=== PATIENT | male | born 1970 | race Caucasian/White ===

== ENCOUNTER 2016-10-27 16:02 | Emergency (ER) | payer OTHER ==
[2016-10-27 16:12] VITALS: BP 182/71
[2016-10-27 16:31] LABS: Hematocrit 43.6 % (42.0-52.0); Hemoglobin 14.4 gm/dL (13.5-18.0); Mean Corpuscular Hemoglobin 30.1 pg (27-31); Mean Platelet Volume 9.7 fl (6.0-9.5); Neutrophil # 7.8 K/mm3 (1.3-6.0); Neutrophil % 72.2 % (42-75.0); Platelet Count 270 K/mm3 (150-450); Red Blood Count 4.79 M/mm3 (4.7-6.0); Red Cell Distribution Width 12.8 % (11.5-14.0); White Blood Count 10.8 K/mm3 (4.0-10.5)
--- NOTE | 2016-10-27 16:41 | ERNOTE ---
Abdominal HPI - General Chief Complaint: Abdominal Pain Time Seen by Provider: 10/27/16 16:27 Source: patient Exam Limitations: clinical condition - Immun/Allergies/Home Medications Immunizatons: IMMUNIZATION HX Immunizations Up to Date Yes History of Influenza Vaccine Yes Allergies/Adverse Reactions: Allergies bupropion HCl [From Wellbutrin] Allergy (Verified 10/27/16 16:08) increased anger divalproex sodium [From Depakote] Allergy (Verified 10/27/16 16:08) very violent behavior asenapine maleate [From Saphris] Adverse Reaction (Verified 10/27/16 16:08) more aggressive benztropine mesylate [From Cogentin] Adverse Reaction (Verified 10/27/16 16:08) vomiting, dry mouth escitalopram oxalate [From Lexapro] Adverse Reaction (Verified 10/27/16 16:08) insomnia olanzapine [From Zyprexa] Adverse Reaction (Verified 10/27/16 16:08) wt gain with high doses paliperidone [From Invega] Adverse Reaction (Verified 10/27/16 16:08) wt gain risperidone [From Risperdal] Adverse Reaction (Verified 10/27/16 16:08) increased anger, yelling, outbursts thioridazine HCl [From Mellaril] Adverse Reaction (Verified 10/27/16 16:08) increased anger ziprasidone HCl [From Geodon] Adverse Reaction (Verified 10/27/16 16:08) increased anger ziprasidone mesylate [From Geodon] Adverse Reaction (Verified 10/27/16 16:08) increased anger Home Medications: HOME MEDICATIONS Escitalopram Oxalate [Lexapro] 30 mg PO DAILY 10/21/12 [Last Taken 10/21/12 08: 00] Ezetimibe [Zetia] 10 mg PO DAILY 10/21/12 [Last Taken Unknown] Propranolol HCl [Inderal Generic] 10 mg PO DAILY 10/21/12 [Last Taken Unknown] Simvastatin [Zocor] 10 mg PO DAILY 10/21/12 [Last Taken Unknown] Topiramate [Topamax] 50 mg PO DAILY 10/28/12 [Last Taken Unknown] Topiramate [Topamax] 100 mg PO DAILY 10/28/12 [Last Taken Unknown] Topiramate [Topamax] 200 mg PO HS 01/08/13 [Last Taken Unknown] Levothyroxine Sodium [Synthroid] 50 mcg PO DAILY 11/12/13 [Last Taken Unknown] Olanzapine [Zyprexa] 20 mg PO BID 11/12/13 [Last Taken Unknown] Omeprazole [Prilosec] 20 mg PO BID 11/12/13 [Last Taken Unknown] Polyethylene Glycol 3350 [Miralax] 17 gm PO DAILY 11/12/13 [Last Taken Unknown] Propranolol HCl [Inderal] 20 mg PO BID 11/12/13 [Last Taken Unknown] Sucralfate [Carafate] 1 gm PO QID 11/12/13 [Last Taken Unknown] Ondansetron [Zofran Odt] 4 mg PO Q4H PRN #10 tab 10/27/16 [Last Taken Unknown] - History of Present Illness Narrative: Patient states that he started to have abdominal pain, vomiting and diarrhea. The pain is mainly epigastric and upper abdominal, denies any fever, no known exposure Date (Duration): 10/27/16 Time (Timing): 06:00 Timing: constant Quality: moderate Review of Systems - Review of Systems Constitutional: Absent: recent illness, fever ENT: Absent: nose congestion, sore throat Respiratory: Absent: shortness of breath, cough Cardiology: Absent: chest pain Gastrointestinal/Abdominal: Present: See HPI, nausea, vomiting, diarrhea, abdominal pain Musculoskeletal: Absent: muscle pain Neurological: Absent: headache - Patient's Past Medical History Patient History - Medical: Anxiety, Depression Patient History - Cardiac/Respiratory: Hyperlipidemia Patient History - Cancer: No Hx of Cancer Patient History - Surgical Procedures: Appendectomy, Other - Social History Living Situations: alone Smoking Status: Never smoker - Immunizations Immunizations Up to Date: Yes Physical Exam - Physical Exam General Appearance: Present: wd/wn, alert, no apparent distress Eye Exam: Normal inspection: bilateral Ears, Nose, Throat: Present: normal ENT inspection, normal pharynx Respiratory: Present: no respiratory distress, normal breath sounds, no accessory muscle use, lungs clear Cardiovascular/Chest: Present: regular rate, rhythm, no murmur Gastrointestinal/Abdominal: Present: soft, tenderness - epigastric, abnormal bowel sounds - decreased Extremity Exam: Present: no edema Neurological Exam: Present: alert, normal mood/affect Skin Exam: Present: normal color, warm/dry ED Progress - Results and Orders Patient's Lab Results:: I have reviewed the patient's lab results. - Vital Signs Patient's Vital Signs:: I have reviewed the patient's vital signs. Vital Signs: Vital Signs 10/27/16 10/27/16 16:03 16:11 Temperature 36.3 C L Pulse Rate 87 92 Respiratory 16 16 Rate Blood Pressure 170/77 182/71 O2 Sat by Pulse 98 96 Oximetry - X-Ray X-Ray #1 X-Ray: abdomen - non specific bowl gas pattern Interpretation: Interp. by me - Progress/Reassessment Chief Complaint: Abdominal Pain Progress Note-Subjective: 10/27/16 17:43 nausea better, no vomiting, just had large amount of diarrhea in bathroom 10/27/16 18:03 tolerated water, no more vomiting, abdominal pain better since getting the ' stomach pill' (zofran) when talking about his scheduled medications he now states that he was able to keep am and noon medications down and did not start throwing up till the afternoon, would like more medication for the pain 10/27/16 18:28 pain better after GI cocktail, no vomiting, patient is ready to go home Departure - Departure Clinical Impression: Gastroenteritis Disposition: Home self-care Condition: Good Instructions: Viral Gastroenteritis, Adult, [id number] Additional Instructions: call your doctor after the weekend for follow up Referrals: Geena Arzola MD [Primary Care Provider] - Prescriptions: Ondansetron [Zofran Odt] 4 mg PO Q4H PRN #10 tab PRN Reason: Nausea And Vomiting
[2016-10-27 16:44] LABS: Anion Gap 15.4 mmol/L (6.8-13.8); Bilirubin, Total 0.4 mg/dL (0.0-1.1); Calcium * 9.3 mg/dL (7.9-10.9); Carbon Dioxide 24.1 mmol/L (24-32.6); Potassium 3.5 mmol/L (3.4-4.6); Total Protein 7.2 gm/dL (6.2-8.2)
[2016-10-27 16:51] LABS: Amylase * 32 U/L (25-115); Lipase 105 U/L (73-393)
[2016-10-27] MEDS ORDERED: ONDANSETRON 4 MG TAB.RAPDIS PO ONE (17:06)
[2016-10-27 17:13] LABS: Urine Appearance Clear; Urine Bilirubin Negative (NEGATIVE); Urine Blood Negative /ul (NEGATIVE); Urine Color Yellow; Urine Ketone Negative (NEGATIVE)
[2016-10-27 17:14] LABS: Urine Bacteria None Seen; Urine Nitrite Negative (NEGATIVE); Urine Protein Negative (NEGATIVE); Urine RBC None Seen /hpf (0-5); Urine Urobilinogen Normal (NORMAL); Urine WBC None Seen /hpf (0-5)
[2016-10-27] MEDS ORDERED: ONDANSETRON 4 MG TAB.RAPDIS ONE (17:39)
[2016-10-27] MEDS ORDERED: LIDOCAINE HCL 20 ML UDC PO ONE (18:06)
[2016-10-27] MEDS ORDERED: SUCRALFATE 1 G/10 ML UDC PO ONE (18:06)
[2016-10-27] MEDS ORDERED: MAG HYDROX/ALUMINUM HYD/SIMETH 30 ML UDC PO ONE (18:06)
== END 2016-10-27 18:42 | disposition home or self-care (01) ==
LOC: ER 16:02
DX: K52.9 Noninfective gastroenteritis and colitis, unspecified (principal)

== ENCOUNTER 2016-10-29 12:30 | Inpatient (IN) | payer OTHER ==
[2016-10-29] MEDS ORDERED: KETOROLAC TROMETHAMINE 60 MG/2 ML VIAL IM ONE (13:01)
[2016-10-29] MEDS ORDERED: NORMAL SALINE 1,000 ML IV ONE (13:01)
[2016-10-29] MEDS ORDERED: KETOROLAC TROMETHAMINE 30 MG/ML VIAL IV ONE (13:05)
--- NOTE | 2016-10-29 13:08 | ERNOTE ---
[id number]: Abdominal Pain Time Seen by Provider: 10/29/16 12:56 Source: patient Exam Limitations: no limitations - Immun/Allergies/Home Medications Immunizatons: IMMUNIZATION HX Immunizations Up to Date Yes History of Influenza Vaccine Yes Hx Pneumococcal Vaccination No Allergies/Adverse Reactions: Allergies bupropion HCl [From Wellbutrin] Allergy (Verified 10/29/16 12:49) increased anger divalproex sodium [From Depakote] Allergy (Verified 10/29/16 12:49) very violent behavior asenapine maleate [From Saphris] Adverse Reaction (Verified 10/29/16 12:49) more aggressive benztropine mesylate [From Cogentin] Adverse Reaction (Verified 10/29/16 12:49) vomiting, dry mouth escitalopram oxalate [From Lexapro] Adverse Reaction (Verified 10/29/16 12:49) insomnia olanzapine [From Zyprexa] Adverse Reaction (Verified 10/29/16 12:49) wt gain with high doses paliperidone [From Invega] Adverse Reaction (Verified 10/29/16 12:49) wt gain risperidone [From Risperdal] Adverse Reaction (Verified 10/29/16 12:49) increased anger, yelling, outbursts thioridazine HCl [From Mellaril] Adverse Reaction (Verified 10/29/16 12:49) increased anger ziprasidone HCl [From Geodon] Adverse Reaction (Verified 10/29/16 12:49) increased anger ziprasidone mesylate [From Geodon] Adverse Reaction (Verified 10/29/16 12:49) increased anger Home Medications: HOME MEDICATIONS Escitalopram Oxalate [Lexapro] 30 mg PO DAILY 10/21/12 [Last Taken 10/21/12 08: 00] Ezetimibe [Zetia] 10 mg PO DAILY 10/21/12 [Last Taken Unknown] Propranolol HCl [Inderal Generic] 10 mg PO DAILY 10/21/12 [Last Taken Unknown] Simvastatin [Zocor] 10 mg PO DAILY 10/21/12 [Last Taken Unknown] Topiramate [Topamax] 50 mg PO DAILY 10/28/12 [Last Taken Unknown] Topiramate [Topamax] 100 mg PO DAILY 10/28/12 [Last Taken Unknown] Topiramate [Topamax] 200 mg PO HS 10/28/12 [Last Taken Unknown] Levothyroxine Sodium [Synthroid] 50 mcg PO DAILY 11/12/13 [Last Taken Unknown] Olanzapine [Zyprexa] 20 mg PO BID 11/12/13 [Last Taken Unknown] Omeprazole [Prilosec] 20 mg PO BID 11/12/13 [Last Taken Unknown] Polyethylene Glycol 3350 [Miralax] 17 gm PO DAILY 11/12/13 [Last Taken Unknown] Propranolol HCl [Inderal] 20 mg PO BID 11/12/13 [Last Taken Unknown] Sucralfate [Carafate] 1 gm PO QID 11/12/13 [Last Taken Unknown] Ondansetron [Zofran Odt] 4 mg PO Q4H PRN #10 tab 10/27/16 [Last Taken Unknown] - History of Present Illness Narrative: Pt. comes in with severe LUQ pain for four days with loose stools of Saturday but no other stools since. Pt. was seen in this ed and Dx with gastroenteritis on Saturday and given Zofran without relief. Pt. was seen this morning at his pcp and was told to come to the ED for possible SBO. Pt. denies any fevers NVD today but states that he did have some nausea this weekend. Pt. states that he has not been able to eat or drink as much as usual but he still has eaten some. Review of Systems - Review of Systems Constitutional: Present: recent illness. Absent: fever, chills, weakness, fatigue, malaise EYE: Present: no symptoms reported ENT: Present: no symptoms reported Respiratory: Present: no symptoms reported. Absent: shortness of breath, cough , wheezing Cardiology: Present: no symptoms reported. Absent: chest pain, palpitations, edema Gastrointestinal/Abdominal: Present: nausea, diarrhea, abdominal pain, eating less, drinking less. Absent: vomiting Genitourinary: Present: no symptoms reported Musculoskeletal: Present: no symptoms reported. Absent: back pain, joint pain Skin: Present: no symptoms reported. Absent: rash, change in color Neurological: Present: no symptoms reported. Absent: headache, dizziness/light- headedness, numbness, tingling All Other Systems: All systems neg except as marked - Patient's Past Medical History Patient History - Medical: Anxiety, Depression, Headache, Obesity Patient History - Cardiac/Respiratory: Hyperlipidemia Patient History - Cancer: No Hx of Cancer Patient History - Surgical Procedures: Appendectomy, Other - Family History Mother Family History - Cardiac/Respiratory: Coronary Heart Disease Father Family History - Cardiac/Respiratory: Coronary Heart Disease Grandfather-Paternal Family History - Medical: Diabetes Type 2 - Social History Living Situations: alone Smoking Status: Former smoker Have you smoked in the past 12 months: No Do you dip or chew tobacco: No Alcohol Use: none Drug Use: none Physical Exam - Physical Exam General Appearance: Present: wd/wn, alert, no apparent distress Eye Exam: Normal inspection: bilateral, PERRL: bilateral, EOMI: bilateral Ears, Nose, Throat: Present: normal ENT inspection, hearing grossly normal, normal pharynx Neck: Present: normal inspection, nontender. Absent: lymphadenopathy (R), lymphadenopathy (L) Respiratory: Present: no respiratory distress, normal breath sounds, no accessory muscle use, chest nontender, lungs clear Cardiovascular/Chest: Present: regular rate, rhythm, no murmur, normal peripheral pulses Gastrointestinal/Abdominal: Present: tenderness - LUQ , abnormal bowel sounds - hypo, distended. Absent: McBurney sign, Obturator sign, Lopez sign, hepatomegaly Back Exam: Present: normal inspection, no CVA tenderness Extremity Exam: Present: normal inspection, non-tender, no edema, normal range of motion Neurological Exam: Present: alert, oriented, normal mood/affect, no motor/ sensory deficits Skin Exam: Present: normal color, warm/dry. Absent: pallor, skin rash ED Progress - Date and Time Seen: Date and Time: 10/29/16 22:[address] Andre and he accepts admit of this pt. - Results and Orders Patient's Lab Results:: I have reviewed the patient's lab results. - Vital Signs Patient's Vital Signs:: I have reviewed the patient's vital signs. Vital Signs: Vital Signs 10/29/16 12:45 Temperature 36 C L Pulse Rate 80 Respiratory 14 Rate Blood Pressure 123/77 O2 Sat by Pulse 94 Oximetry - CT/Ultrasound CT/Ultrasound Narrative: CT scan positive for thicked small bowel appearance and partial SBO discussed with Dr Black and will admit for obs and resolution of SBO. - Progress/Reassessment Chief Complaint: Abdominal Pain Progress:: Unchanged Departure - Departure Clinical Impression: Partial small bowel obstruction Disposition: [facility] Condition: Fair
[2016-10-29] MEDS ORDERED: KETOROLAC TROMETHAMINE 30 MG/ML VIAL ONE (13:11)
[2016-10-29] MEDS ORDERED: DIATRIZOATE MEGLU/DIATRIZO SOD 30 ML BTL ONE (13:25)
[2016-10-29 13:32] LABS: Albumin * 4.1 gm/dl (3.4-5.0); Anion Gap 16.6 mmol/L (6.8-13.8); BUN/Creatinine Ratio 10.3 (9.0-21.6); Bilirubin, Total 0.5 mg/dL (0.0-1.1); Calcium * 9.4 mg/dL (7.9-10.9); Carbon Dioxide 24.3 mmol/L (24-32.6); Potassium 3.9 mmol/L (3.4-4.6); Total Protein 7.7 gm/dL (6.2-8.2)
[2016-10-29 13:38] LABS: Hematocrit 46.4 % (42.0-52.0); Hemoglobin 14.9 gm/dL (13.5-18.0); Mean Cell Volume 92.4 fl (78-100); Mean Corpuscular Hemoglobin 29.7 pg (27-31); Mean Corpuscular Hgb Conc 32.1 g/dl (32-36); Neutrophil # 9.8 K/mm3 (1.3-6.0); Neutrophil % 68.2 % (42-75.0); Platelet Count 312 K/mm3 (150-450); Red Blood Count 5.02 M/mm3 (4.7-6.0); Red Cell Distribution Width 12.8 % (11.5-14.0); White Blood Count 14.4 K/mm3 (4.0-10.5)
[2016-10-29 13:54] LABS: Urine Bilirubin Negative (NEGATIVE); Urine Blood Negative /ul (NEGATIVE); Urine Ketone Negative (NEGATIVE); Urine Nitrite Negative (NEGATIVE); Urine Protein Negative (NEGATIVE); Urine Specific Gravity <=1.005 SP.GR. (1.005-1.030); Urine Urobilinogen Normal (NORMAL)
[2016-10-29 14:18] LABS: Urine Appearance Clear; Urine Bacteria None Seen; Urine Color Yellow; Urine RBC None Seen /hpf (0-5); Urine WBC None Seen /hpf (0-5)
--- NOTE | 2016-10-29 21:11 | HP ---
Chief Complaint - Chief Complaint Date of Service: 10/29/16 Time of Service: 21:31 Chief Complaint: abdominal pain History of Present Illness: Pt is a 46 year old WM of Dr. Arzola. With a PMH significant for bipolar disorder, depression, and anxiety. Who comes in with severe LUQ pain for four days with loose stools on Saturday but no other stools or passing gas since. On Saturday10/27/15 pt was seen in ER and dx with gastroenteritis. He was given Zofran and sent home. After going home he states that he threw up all day Saturday , unable to keep anything down. Denies any fevers/chills or chill. Nothing makes his symptoms better or worse. He has never had SBO before. Has been taking PRN zofran which assists with the nausea. Rates the pain an 8/10 that comes and goes. Pain is shape located in the left lower quadrant. Pt was seen this morning by Dr. Arzola and was told to come to the ED for possible SBO. In the ER workup was significant for CT with evidence of partial proximal small bowel obstruction. Laboratory findings with WBC 14.4, otherwise unremarkable. NGT was placed, information systems analyst general surgeon was consulted and patient will be admitted to in patient for further work up and treatment of partial SBO. - Patient's Past Medical History Patient History - Medical: Anxiety, Bipolar, Depression, Headache, Obesity, Other - mood swings, anger issues Patient History - Cardiac/Respiratory: Hypertension, Hyperlipidemia Patient History - Cancer: No Hx of Cancer Patient History - Surgical Procedures: Appendectomy, Other - umbillical hernia repair Patient History - Other: None - Family History Mother Family History - Cardiac/Respiratory: Coronary Heart Disease Father Family History - Cardiac/Respiratory: Coronary Heart Disease Grandfather-Paternal Family History - Medical: Diabetes Type 2 - Social History Living Situations: alone Does anyone smoke in the home?: No Smoking Status: Former smoker Have you smoked in the past 12 months: No Do you dip or chew tobacco: No Patient requests Smoking Cessation Consult: No Initiate information on Smoking Cessation: No Alcohol Use: none Drug Use: none - Immunizations Immunizations Up to Date: Yes Hx Pneumococcal Vaccination: No History of Influenza Vaccine: Yes Review Of Systems (GEN) - Review of Systems Generalized/Overall Review: Present: No Symptoms Reported EENTM: Present: No Symptoms Reported Respiratory: Present: No Symptoms Reported Cardiac: Present: No Symptoms Reported Abdominal: Present: Nausea, Abdominal Pain - LLQ, Constipation Genitourinary: Present: No Symptoms Reported Musculoskeletal: Present: No Symptoms Reported Neurological: Present: No Symptoms Reported Skin: Present: No Symptoms Reported Allergies/Adverse Reactions: Allergies Allergy/AdvReac Type Severity Reaction Status Date / Time bupropion HCl Allergy Verified 10/29/16 12:49 [From Wellbutrin] divalproex sodium Allergy Verified 10/29/16 12:49 [From Depakote] asenapine maleate AdvReac Verified 10/29/16 12:49 [From Saphris] benztropine mesylate AdvReac Verified 10/29/16 12:49 [From Cogentin] escitalopram oxalate AdvReac Verified 10/29/16 12:49 [From Lexapro] olanzapine [From Zyprexa] AdvReac Verified 10/29/16 12:49 paliperidone [From Invega] AdvReac Verified 10/29/16 12:49 risperidone [From Risperdal] AdvReac Verified 10/29/16 12:49 thioridazine HCl AdvReac Verified 10/29/16 12:49 [From Mellaril] ziprasidone HCl [From Geodon] AdvReac Verified 10/29/16 12:49 ziprasidone mesylate AdvReac Verified 10/29/16 12:49 [From Geodon] Home Medications: HOME MEDICATIONS Escitalopram Oxalate [Lexapro] 30 mg PO DAILY 10/21/12 [Last Taken 10/21/12 08: 00] Ezetimibe [Zetia] 10 mg PO DAILY 10/21/12 [Last Taken Unknown] Propranolol HCl [Inderal Generic] 10 mg PO DAILY 10/21/12 [Last Taken Unknown] Simvastatin [Zocor] 10 mg PO DAILY 10/21/12 [Last Taken Unknown] Topiramate [Topamax] 50 mg PO DAILY 10/28/12 [Last Taken Unknown] Topiramate [Topamax] 100 mg PO DAILY 10/28/12 [Last Taken Unknown] Topiramate [Topamax] 200 mg PO HS 10/28/12 [Last Taken Unknown] Levothyroxine Sodium [Synthroid] 50 mcg PO DAILY 11/12/13 [Last Taken Unknown] Olanzapine [Zyprexa] 20 mg PO BID 11/12/13 [Last Taken Unknown] Omeprazole [Prilosec] 20 mg PO BID 11/12/13 [Last Taken Unknown] Polyethylene Glycol 3350 [Miralax] 17 gm PO DAILY 11/12/13 [Last Taken Unknown] Propranolol HCl [Inderal] 20 mg PO BID 11/12/13 [Last Taken Unknown] Sucralfate [Carafate] 1 gm PO QID 11/12/13 [Last Taken Unknown] Ondansetron [Zofran Odt] 4 mg PO Q4H PRN #10 tab 10/27/16 [Last Taken Unknown] Exam - Exam Vital Signs: Vital Signs - Last Taken Temp 36.7 C 10/29/16 19:52 Pulse 103 H 10/29/16 19:52 Resp 16 10/29/16 19:52 BP 124/90 10/29/16 19:52 Pulse Ox 96 10/29/16 19:52 Diagnostic Studies: Laboratory Results Laboratory Tests 10/29/16 10/29/16 13:15 13:15 WBC 14.4 H D Hgb 14.9 Hct 46.4 Plt Count 312 Sodium 139 Potassium 3.9 Chloride 102 Carbon Dioxide 24.3 Anion Gap 16.6 H BUN 12 Creatinine 1.16 Random Glucose 105 Calcium 9.4 AST 14 ALT 38 Alkaline Phosphatase 66 Total Protein 7.7 Albumin 4.1 Assessment/Plan - Assessment/Plan (1) Partial small bowel obstruction Assessment: CT scan with evidence of partial SBO. NGT placed in ER will maintain at [facility]. MIVF of D5.45 @150ml/hr. Gen surg to see in the am. -NPO -D5.45 @150ml/hr -Zofran PRN for nausea -Morphine 4mg Q4H PRN for pain -C/S gen surgery -Per ER have spoken with him, will see in the am -NGT to [facility] -Cetacaine [place] PRN Problem: Acute (2) Bipolar 1 disorder Assessment: Stable. Unable to verify medications as pt is not able to recall doses or all medications. Will call [facility] in the am to verify. Problem: Chronic
[2016-10-29] MEDS ORDERED: ONDANSETRON HCL/PF 2 MG/ML VIAL IV PRN (21:20)
[2016-10-29] MEDS ORDERED: ENOXAPARIN SODIUM 40 MG/0.4 ML SYRG SC SCH (21:30)
[2016-10-29] MEDS ORDERED: TOPIRAMATE 50 MG TABLET PO SCH (21:45)
[2016-10-29] MEDS ORDERED: MORPHINE SULFATE 4 MG/ML SYRG IV PRN (21:45)
[2016-10-29] MEDS: DEXTROSE 5%-0.5 NORMAL SALINE 1,000 ML IV PRN (22:10)
[2016-10-29] MEDS ORDERED: TETRACAINE/BENZOCAINE/BUTAMBEN 20 SPRAY BTL TP PRN (23:53)
[2016-10-30] MEDS ORDERED: TETRACAINE/BENZOCAINE/BUTAMBEN 56 SPRAY BTL TP ONE (00:37)
[2016-10-30] MEDS: DEXTROSE 5%-0.5 NORMAL SALINE 1,000 ML IV PRN ×2 (04:52→11:18)
[2016-10-30 06:16] LABS: Hematocrit 39.5 % (42.0-52.0); Hemoglobin 12.9 gm/dL (13.5-18.0); Mean Cell Volume 91.6 fl (78-100); Mean Corpuscular Hemoglobin 29.9 pg (27-31); Mean Corpuscular Hgb Conc 32.7 g/dl (32-36); Mean Platelet Volume 9.8 fl (6.0-9.5); Neutrophil # 6.3 K/mm3 (1.3-6.0); Neutrophil % 64.2 % (42-75.0); Platelet Count 245 K/mm3 (150-450); Red Blood Count 4.31 M/mm3 (4.7-6.0); Red Cell Distribution Width 12.8 % (11.5-14.0); White Blood Count 9.8 K/mm3 (4.0-10.5)
[2016-10-30 06:25] LABS: Albumin * 3.3 gm/dl (3.4-5.0); Anion Gap 14.3 mmol/L (6.8-13.8); BUN/Creatinine Ratio 12.2 (9.0-21.6); Bilirubin, Total 0.5 mg/dL (0.0-1.1); Ca. Corrected For Albumin 8.5 mg/dL (8.4-10.2); Calcium * 8.3 mg/dL (7.9-10.9); Carbon Dioxide 22.2 mmol/L (24-32.6); Potassium 3.5 mmol/L (3.4-4.6); Total Protein 6.3 gm/dL (6.2-8.2)
--- NOTE | 2016-10-30 12:29 | CONS ---
[facility] - General Date of Service: 10/30/16 Source: patient, RN/MD, old records Exam Limitations: no limitations - History of Present Illness Initial Comments: Pt presented on Sat to ER with abdominal pain/N/V. Was found to have probably gastroenteritis and was dismissed. Presented again to ER last night at behest of primary physician. Was found to have partial SBO by CT and elevated WBC. The obstruction with transition point is in the jejunum and is associated with bowel wall thickening either consistent with IBD or Bowel infection. He has had an appendectomy and laparoscopic umbilical hernia repair in the past so adhesive disease is certainly also a possibility. He was admitted for gut rest, hydration and observation. His WBC has normalized and is likely secondary to dehydration. He has had a large bowel movement today. He is not complaining of abdominal pain today. Timing/Duration: 1 week Modifying Factors - (Worsens): Reports: eating Associated Symptoms: nausea, vomiting Allergies/Adverse Reactions: Allergies bupropion HCl [From Wellbutrin] Allergy (Verified 10/29/16 12:49) increased anger divalproex sodium [From Depakote] Allergy (Verified 10/29/16 12:49) very violent behavior asenapine maleate [From Saphris] Adverse Reaction (Verified 10/29/16 12:49) more aggressive benztropine mesylate [From Cogentin] Adverse Reaction (Verified 10/29/16 12:49) vomiting, dry mouth escitalopram oxalate [From Lexapro] Adverse Reaction (Verified 10/29/16 12:49) insomnia olanzapine [From Zyprexa] Adverse Reaction (Verified 10/29/16 12:49) wt gain with high doses paliperidone [From Invega] Adverse Reaction (Verified 10/29/16 12:49) wt gain risperidone [From Risperdal] Adverse Reaction (Verified 10/29/16 12:49) increased anger, yelling, outbursts thioridazine HCl [From Mellaril] Adverse Reaction (Verified 10/29/16 12:49) increased anger ziprasidone HCl [From Geodon] Adverse Reaction (Verified 10/29/16 12:49) increased anger ziprasidone mesylate [From Geodon] Adverse Reaction (Verified 10/29/16 12:49) increased anger Home Medications: Home Medications Medication Instructions Recorded Last Taken Escitalopram Oxalate [Lexapro] 30 mg PO DAILY 10/21/12 10/21/12 08:00 Ezetimibe [Zetia] 10 mg PO DAILY 10/21/12 Unknown Propranolol HCl [Inderal Generic] 10 mg PO 1200 10/21/12 Unknown Simvastatin [Zocor] 10 mg PO QPM 10/21/12 Unknown Topiramate [Topamax] 1 - 2 tab PO Q4H PRN 10/28/12 Unknown Topiramate [Topamax] 200 mg PO BID 10/28/12 Unknown Levothyroxine Sodium [Synthroid] 50 mcg PO DAILY 11/12/13 Unknown Olanzapine [Zyprexa] 20 mg PO BID 11/12/13 Unknown Polyethylene Glycol 3350 [Miralax] 17 gm PO DAILY 11/12/13 Unknown Propranolol HCl [Inderal] 20 mg PO BID 11/12/13 Unknown Sucralfate [Carafate] 1 gm PO QID 11/12/13 Unknown Cetirizine HCl [Zyrtec] 10 mg PO DAILY 10/30/16 Unknown Dexlansoprazole [Dexilant] 60 mg PO DAILY 10/30/16 Unknown Dextromethorphan HBr/Quinidine 1 each PO DAILY 10/30/16 Unknown [Nuedexta 20-10 mg Capsule] LORazepam [Ativan] 0.5 mg PO TID 10/30/16 Unknown [place] Carbonate 300 mg PO BID 10/30/16 Unknown Lorazepam [Ativan] 2 mg PO BID 10/30/16 Unknown Mometasone Furoate [Nasonex] 2 spray NS DAILY 10/30/16 Unknown QUEtiapine FUMARATE [Seroquel] 100 mg PO HS 10/30/16 Unknown - Patient's Past Medical History Patient History - Medical: Anxiety, Bipolar, Depression, Headache, Obesity, Other - mood swings, anger issues Patient History - Cardiac/Respiratory: Hypertension, Hyperlipidemia Patient History - Cancer: No Hx of Cancer Patient History - Surgical Procedures: Appendectomy, Other - umbillical hernia repair - Family History Mother Family History - Cardiac/Respiratory: Coronary Heart Disease Father Family History - Cardiac/Respiratory: Coronary Heart Disease Grandfather-Paternal Family History - Medical: Diabetes Type 2 - Social History Living Situations: alone Does anyone smoke in the home?: No Smoking Status: Former smoker Have you smoked in the past 12 months: No Do you dip or chew tobacco: No Patient requests Smoking Cessation Consult: No Initiate information on Smoking Cessation: No Alcohol Use: none Drug Use: none Procedures ESOPHAGOGASTRODUODENOSCOPY [EGD] W/CLOSED BIOPSY (11/18/13) TONSILLECTOMY/ADENOIDEC (11/02/10) Medications - Medications Current Medications: Current Medications Enoxaparin Sodium (Lovenox) 40 mg SC HS OBED Stop: 11/28/16 21:31 Last Admin: 10/29/16 22:11 Dose: 40 mg Dextrose/Sodium Chloride (Dextrose 5%-0.45%Ns) 1,000 mls @ 150 mls/hr IV .Q6H40M PRN PRN Reason: HYDRATION Stop: 11/28/16 21:14 Last Admin: 10/30/16 11:18 Dose: 150 mls/hr Morphine Sulfate (Morphine Sulfate) 4 mg IV Q4H PRN PRN Reason: pain Stop: 11/28/16 21:46 Last Admin: 10/29/16 22:22 Dose: 4 mg Topiramate (Topamax) 200 mg PO HS OBED Stop: 11/28/16 21:46 Last Admin: 10/29/16 22:12 Dose: 200 mg Physical Examination - Exam Vital Signs: Vital Signs - Last Taken Temp 36.9 C 10/30/16 10:14 Pulse 95 10/30/16 10:14 Resp 16 10/30/16 10:14 BP 118/79 10/30/16 10:14 Pulse Ox 96 10/30/16 10:14 O2 Oxygen Delivery Method Room Air Constitutional: Present: Alert, Oriented x3, Cooperative, Well developed, Other - Sitting up in chair., Morbidly obese ENT Exam: Present: normal ENT inspection, other - NG in place. Draining normal succus entericus. Neck: Present: normal inspection Respiratory: Present: no respiratory distress Abdomen: Present: Normal bowel sounds, soft, nontender, nondistended, no masses , rigidity, rebound tenderness, other - Recurrent umbilical hernia palpable in the base of the umbilicus. It is non-tender. No attempt at reduction performed.. Absent: guarding - Results and Findings: Narrative: A/P: Partial small bowel obstruction. Contrast was seen going past the transition point. There was air in the colon The patient has already had a large bowel movement No peritoneal signs on exam Pt is pain free Can clamp NG and begin feeding May discharge if tolerating PO well Needs to FU with Dr. Montgomery post discharge Small bowel thickening May be seen in IBD, Adhesive obstruction and enteritis Current etiology unclear. If symptoms persist further polanco indicated Leukocytosis Related to dehydration Recurrent umbilical hernia Incarcerated Case d/w Dr. Andre Lab/Microbiology results last 24 hrs: Abnormal/Pending Laboratory Last 24 HRS 10/30/16 10/30/16 10/30/16 06:10 06:10 06:10 RBC 4.31 L Hgb 12.9 L Hct 39.5 L MPV 9.8 H Immature Gran # (Auto) 0.04 H Monocytes % 11.6 H Neutrophils # 6.3 H Monocytes # 1.1 H Chloride 108 H Carbon Dioxide 22.2 L Anion Gap 14.3 H Random Glucose 134 H C-Reactive Prot, Quant 4.3 H Albumin 3.3 L
[2016-10-30] MEDS ORDERED: EZETIMIBE 10 MG TABLET PO SCH (13:00)
--- NOTE | 2016-10-30 13:06 | PN ---
Subjective - Date and Time Seen Date: 10/30/16 Time: 09:00 Subjective Narrative: Patient seen today AOX3 no acute distress, he denies nausea, vomiting and abdominal discomfort. Pt stated he had large bowel movement this morning and + flatus. Minimal drainage in canister. pt anticipating DC home later today Objective - Review of Systems Generalized/Overall Review: Reports: No Symptoms Reported EENTM: Reports: No Symptoms Reported Respiratory: Reports: No Symptoms Reported Cardiac: Reports: No Symptoms Reported Abdominal: Reports: No Symptoms Reported Genitourinary Symptoms: Reports: No Symptoms Reported Musculoskeletal Complaints: Reports: No Symptoms Reported Neurological: Reports: No Symptoms Reported Skin: Reports: No Symptoms Reported Endocrine: Reports: No Symptoms Reported - Vitals Vitals: Last Vital Signs Temp 36.9 C 10/30/16 10:14 Pulse 95 10/30/16 10:14 Resp 16 10/30/16 10:14 BP 118/79 10/30/16 10:14 Pulse Ox 96 10/30/16 10:14 - Abnormal Lab Findings Abnormal Lab Findings: Abnormal Lab Results 10/30/16 10/30/16 10/30/16 Range/Units 06:10 06:10 06:10 RBC 4.31 L (4.7-6.0) M/mm3 Hgb 12.9 L (13.5-18.0) gm/dL Hct 39.5 L (42.0-52.0) % MPV 9.8 H (6.0-9.5) fl Immature Gran # (Auto) 0.04 H (0.000-0.0310) K/mm3 Monocytes % 11.6 H (0.0-9) % Neutrophils # 6.3 H (1.3-6.0) K/mm3 Monocytes # 1.1 H (0.0-1.0) k/mm3 Chloride 108 H (97-106) mmol/L Carbon Dioxide 22.2 L (24-32.6) mmol/L Anion Gap 14.3 H (6.8-13.8) mmol/L Random Glucose 134 H (70-110) mg/dL C-Reactive Prot, Quant 4.3 H (0.0-0.9) mg/dL Albumin 3.3 L (3.4-5.0) gm/dl - Exam Constitutional: Present: Alert, Oriented x3, Cooperative, Well developed, No distress ENT Exam: Present: normal ENT inspection Neck: Present: full range of motion Breasts: Present: Exam deferred Respiratory: Present: chest non-tender, lungs clear, normal breath sounds, no respiratory distress Cardiovascular/Chest: Present: normal peripheral pulses, regular rate, rhythm, no chest tenderness, no edema Abdomen: Present: Normal bowel sounds, soft, nontender, nondistended, no rebound tenderness /Rectal: Present: Exam deferred Extremity: Present: normal range of motion, non-tender, normal inspection, no pedal edema, no calf tenderness Skin Exam: Present: normal color, warm/dry, no cyanosis Neurologic: Present: oriented x 3 Appearance: Present: appropriate appearance Eye contact: Present: cooperative Thoughts: Present: normal thought pattern Assessment/Plan Plan Narrative: (1) Partial small bowel obstruction Assessment: CT scan with evidence of partial SBO. NGT placed in ER will maintain at L[facility]. MIVF of D5.45 @150ml/hr. Gen surg to see in the am. Clamp NGT and start CLD today and advanced as tolerated -D5.45 @150ml/hr -Zofran PRN for nausea -Morphine 4mg Q4H PRN for pain -C/S gen surgery - discussed and plan for DC when tolerating meals. -Cetacaine [place] PRN (2) Bipolar 1 disorder May resume home medications code status Full vte SCd/ lovenox and ambulate - Problems/Diagnosis (1) Partial small bowel obstruction Problem: Resolved (2) Bipolar 1 disorder Problem: Chronic (3) Gastroenteritis Problem: Acute
[2016-10-30] MEDS ORDERED: ESCITALOPRAM OXALATE 10 MG TAB PO SCH (13:15)
--- NOTE | 2016-10-30 17:29 | DS ---
(1) Partial small bowel obstruction Problem: Resolved (2) Bipolar 1 disorder Problem: Chronic Description of Stay: Malcolm vaughn, is a 46 year old WM of Dr. Arzola, who was admitted on 2016 for abdominal pain. . His PMH is significant for bipolar disorder, depression, and anxiety. Abdominal pain was severe LUQ pain for four days with loose stools on Saturday but no other stools or passing gas since. On 10/27/15 pt was seen in ER and dx with gastroenteritis. He was given Zofran and sent home. After going home he stated that he threw up all day Saturday, unable to keep anything down. Denied any fevers/chills or chill. Nothing makes his symptoms better or worse. He has never had SBO before. Has been taking PRN zofran which assists with the nausea. Rated the pain an 8/10 that comes and goes. Pain was sharp located in the left lower quadrant. Pt was seen on the morning of admission by Dr. Arzola and was told to go to the ED for possible SBO. In the ER workup was significant for CT with evidence of partial proximal small bowel obstruction. Laboratory findings with WBC 14.4, otherwise unremarkable. NGT was placed, transportation operations manager general surgeon was consulted and patient will be admitted to in patient for further work up and treatment of partial SBO. His WBC normalized and he passe large BM this morning. He is no lonfger complaining of his abdominal pain. The general surgeon saw the patient and agreed to proceed with is diet and if tolerated , he may be discharged today. Procedures Performed: none Discharge Disposition: Home self care Disposition: Home self-care Condition: Good Discharge Activity: Activity as tolerated Discharge Diet: General/regular food Additional Patient Instructions (free text): Follow up with his PCP in 1 week. Complete Home Medications List: Complete Home Medication List: Escitalopram Oxalate [Lexapro] 30 mg PO DAILY 10/21/12 Ezetimibe [Zetia] 10 mg PO DAILY 10/21/12 Propranolol HCl [Inderal] 10 mg PO 1200 10/21/12 Simvastatin [Zocor] 10 mg PO QPM 10/21/12 Topiramate [Topamax] 1 - 2 tab PO Q4H PRN 10/28/12 Topiramate [Topamax] 200 mg PO BID 10/28/12 Levothyroxine Sodium [Synthroid] 50 mcg PO DAILY 11/12/13 Olanzapine [Zyprexa] 20 mg PO BID 11/12/13 Polyethylene Glycol 3350 [Miralax] 17 gm PO DAILY 11/12/13 Sucralfate [Carafate] 1 gm PO QID 11/12/13 Cetirizine HCl [Zyrtec] 10 mg PO DAILY 10/30/16 Dexlansoprazole [Dexilant] 60 mg PO DAILY 10/30/16 Dextromethorphan HBr/Quinidine [Nuedexta 20-10 mg Capsule] 1 each PO DAILY 10/30 LORazepam [Ativan] 0.5 mg PO TID 10/30/16 [place] Carbonate 300 mg PO BID 10/30/16 Lorazepam [Ativan] 2 mg PO BID 10/30/16 Mometasone Furoate [Nasonex] 2 spray NS DAILY 10/30/16 QUEtiapine FUMARATE [Seroquel] 100 mg PO HS 10/30/16
[2016-10-30 19:06] VITALS: BP 125/69
[2016-10-30] MEDS ORDERED: LORazepam 1 MG TABLET PO SCH (21:00)
[2016-10-30] MEDS ORDERED: LITHIUM CARBONATE 150 MG CAPSULE PO SCH (21:00)
[2016-10-31] MEDS ORDERED: PANTOPRAZOLE SODIUM 40 MG TABLET.EC PO SCH (07:00)
[2016-10-31] MEDS ORDERED: LEVOTHYROXINE SODIUM 50 MCG TABLET PO SCH (07:00)
[2016-10-31] MEDS ORDERED: LORATADINE 10 MG TABLET PO SCH (09:00)
[2016-10-31 22:30] LABS: P-ANCA Titer DNR titer (<1:20)
== END 2016-10-30 20:20 | disposition home or self-care (01) | DRG 390 ==
LOC: ER 12:30 → MS 17:47 → OBSVTOIN 17:47
PROVIDERS: ADMIT Internal Medicine; ATTEND Internal Medicine
DX: K56.69 Other intestinal obstruction (principal); K52.9 Noninfective gastroenteritis and colitis, unspecified; D72.829 Elevated white blood cell count, unspecified; F31.9 Bipolar disorder, unspecified; I10 Essential (primary) hypertension; E78.5 Hyperlipidemia, unspecified; Z87.891 Personal history of nicotine dependence